=== PATIENT | female | born 1970 | race American Indian/Alaskan Native ===

== ENCOUNTER 2021-04-09 12:27 | Outpatient (CLI) | payer OTHER ==
--- NOTE | 2021-04-09 14:29 | XRay Report ---
LUMBAR SPINE 3 VIEWS INDICATION / CLINICAL INFORMATION: LUMBAR BACK PAIN M54.50. COMPARISON: None available. FINDINGS: VERTEBRAE: No acute fracture. No significant malalignment. DISC SPACES / FACET JOINTS:Mild degenerative change PARASPINAL SOFT TISSUES:No significant abnormality. ADDITIONAL FINDINGS: None. Signer Name: Yung Forman MD Signed: 04/09/2021 2:24 PM Workstation Name: [email or web address]
== END 2021-04-09 12:28 | disposition home or self-care (01) ==
LOC: XRAY 12:27
PROVIDERS: ATTEND Nurse Practitioner Family
DX: M47.817 Spondylosis without myelopathy or radiculopathy, lumbosacral region (principal)
CPT/HCPCS: 72100